=== PATIENT | male | born 1935 | race Caucasian/White ===

== ENCOUNTER → 2016-04-29 | Outpatient (CLI) | payer MEDICARE, OTHER ==
[~2016-04-29] MED LIST: ASP81TEC PO; IBUP-15 PO; MULT1CAP27 PO; SULF1TAB38 PO
--- NOTE | 2016-05-02 00:33 | ECHOCARDIOGRAPHY REPORT ---
PROCEDURE PHYSICIAN: KAITY CHEATHAM DATE OF PROCEDURE: 04/29/2016 TWO DIMENSIONAL ECHOCARDIOGRAM REPORT PRIMARY PHYSICIAN: Dr. Alston OTHER PHYSICIAN: Dr. Cheatham REFERRING PHYSICIAN: ORDERING PHYSICIAN: Kathryn Humphreys APRN INDICATION FOR THE PROCEDURE: 1. Aortic stenosis. 2. Coronary artery disease. 3. Shortness of breath. MEASUREMENTS DERIVED VALUES LV DIAMETER (LAX) NORMALS NORMALS Diastolic 4.9 (3.6-5.2) Eject. Fract. (60%+/-6%) Systolic (2.3-3.9) Diastolic Vol. % Shortening (0.22-0.42) Systolic Vol. Aortic Root 4 IVS THICKNESS Diastolic 1.5 (0.6-1.1) LVPW THICKNESS Diastolic 1.4 (0.6-1.1) LA DIAMETER Systolic 5 (2.1-3.7) DESCRIPTION: Two-dimensional echocardiography shows mild to moderate concentric left ventricular hypertrophy. Global left ventricular systolic function appears well preserved. Left ventricular ejection fraction is approximately 55%. There is moderate mitral annular calcification and moderate aortic valve sclerosis. Mitral and tricuspid valve leaflets show good leaflet excursion. Aortic valve leaflets exhibit diminished but fair leaflet excursion exertion. Doppler imaging shows mild mitral, tricuspid, pulmonic and aortic regurgitation. Pulmonary artery systolic pressure is estimated to be approximately 30 mmHg. Mitral inflow is consistent with grade 1 diastolic dysfunction of the left ventricle. Peak pressure gradient across the aortic valve is approximately 30 mmHg with a mean gradient of 20 mmHg and aortic valve area is calculated to be approximately 1.9 sq cm. There is no evidence of significant intracardiac shunt on this transthoracic echocardiographic study. CONCLUSION: 1. Significant aortic valve sclerosis with mild to moderate aortic stenosis and a mean gradient across the aortic valve of approximately 20 mmHg with a calculated area approximately 1.9 cm sq. 2. Well preserved global left ventricular systolic function with an ejection fraction of approximately 55%. 3. Mild to moderate concentric left ventricular hypertrophy. 4. Mild diastolic dysfunction of the left ventricle. 5. Mild aortic, mitral, tricuspid and pulmonic regurgitation. 6. Pulmonary artery systolic pressure is estimated to be approximately 30 mmHg. Job ID: [id number] Dictated Date: 05/01/2016 16:19:40 Water Quality Analyst Date: 05/02/2016 00:28:32 / joslyn
== END ==
LOC: CARD 14:30
PROVIDERS: ATTEND Nurse Practitioner Family
DX: I35.0 Nonrheumatic aortic (valve) stenosis (principal); I25.10 Atherosclerotic heart disease of native coronary artery without angina pectoris; R06.09 Other forms of dyspnea; I65.23 Occlusion and stenosis of bilateral carotid arteries; E78.4 Other hyperlipidemia; Z95.1 Presence of aortocoronary bypass graft
CPT/HCPCS: 93306

== ENCOUNTER → 2016-05-10 | Outpatient (CLI) | payer MEDICARE, OTHER ==
[~2016-05-10] VITALS: Ht 182.9 cm; Wt 100.7 kg
[~2016-05-10] MED LIST changes: +CATHETER FLUSH 10 ML SYR IV PRN; +REGADENOSON 0.4 MG/5 ML SYR (LEXISCAN) IV ONE
[2016-05-10 09:55] VITALS: BP 132/67
[2016-05-10 10:03] VITALS: BP 120/58
[2016-05-10 10:06] VITALS: BP 126/62
--- NOTE | 2016-05-11 08:48 | STRESS TEST ---
PROCEDURE PHYSICIAN: KAITY CHEATHAM DATE OF PROCEDURE: 05/10/2016 RESTING AND POST REGADENOSON TECHNETIUM 99M TETROFOSMIN SPECT CT IMAGING: ORDERING PHYSICIAN: Kathryn Humphreys APRN. PRIMARY PHYSICIAN: Dr. Alston OTHER PHYSICIAN: Dr. Cheatham. INDICATION FOR THE PROCEDURE: 1. Aortic stenosis. 2. Coronary artery disease. 3. Shortness of breath. Baseline images were carried out after injection of 10.71 mCi of technetium 99m tetrofosmin. This was followed by 0.4 mg of regadenoson and 32 mCi of technetium 99m tetrofosmin for stress imaging. The electrocardiogram showed sinus rhythm with right bundle branch block and left anterior fascicular block. The electrocardiogram did not change significantly with regadenoson infusion. The patient did not report significant symptoms. Review of images at rest and following regadenoson infusion indicates a small, fixed inferoseptal perfusion defect. Gated images show a localized area of inferoseptal hypokinesis to akinesis. Left ventricular ejection fraction is calculated to be 52%. Left ventricular end-diastolic volume 140 mL. TID is absent (1.09). CONCLUSIONS: 1. This study is suggestive of a small inferoseptal myocardial infarction without any significant ischemia. 2. Localized inferoseptal hypokinesis. 3. Well preserved global left ventricular systolic function with a calculated ejection fraction of 52%. 4. Mild to moderate cardiomegaly. Job ID: [id number] Dictated Date: 05/11/2016 08:06:05 Addiction Social Worker Date: 05/11/2016 08:42:54 / joslyn
== END ==
LOC: CARD 08:14
PROVIDERS: ATTEND Nurse Practitioner Family
DX: I35.0 Nonrheumatic aortic (valve) stenosis (principal); I25.10 Atherosclerotic heart disease of native coronary artery without angina pectoris; R06.09 Other forms of dyspnea; I65.23 Occlusion and stenosis of bilateral carotid arteries; E78.4 Other hyperlipidemia; Z95.1 Presence of aortocoronary bypass graft
CPT/HCPCS: 78452; 93017

== ENCOUNTER → 2016-12-13 | Outpatient (CLI) | payer MEDICARE, OTHER ==
[~2016-12-13] MED LIST changes: -CATHETER FLUSH 10 ML SYR IV PRN; -REGADENOSON 0.4 MG/5 ML SYR (LEXISCAN) IV ONE
--- NOTE | 2016-12-13 16:20 | Diagnostic Imaging Report ---
EXAMINATION: Right lower extremity duplex venous ultrasound. TECHNIQUE: DVT protocol. Multiple sonographic images with color Doppler and waveform interrogation were performed of the right lower extremity veins with compression and augmentation maneuvers. INDICATION: Right leg pain. FINDINGS: The right lower extremity veins from the groin to below the knee veins were examined with normal color-flow, compressibility and normal waveform demonstrated. The tibial veins are not well seen due to lack edema. IMPRESSION: No evidence of DVT in the right lower extremity in the femoropopliteal segments. Dictated by: Dictated on workstation # [id number]
== END ==
LOC: RAD 14:56
PROVIDERS: ATTEND Nurse Practitioner Family
DX: M79.89 Other specified soft tissue disorders (principal); I25.10 Atherosclerotic heart disease of native coronary artery without angina pectoris; I35.0 Nonrheumatic aortic (valve) stenosis; I65.23 Occlusion and stenosis of bilateral carotid arteries; E78.4 Other hyperlipidemia
CPT/HCPCS: 93923

== ENCOUNTER 2017-10-18 05:33 | Outpatient (CLI) | payer MEDICARE, OTHER ==
[~2017-10-18] VITALS: Ht 182.9 cm; Wt 100.7 kg
[2017-10-18] MEDS ORDERED: ASPI-999 PO (10:54)
[2017-10-18] MEDS ORDERED: PRAV40TA PO (10:54)
[2017-10-18] MEDS ORDERED: LOSA50TA36 PO (10:54)
[2017-10-18] MEDS ORDERED: IBUP-2185 PO (10:54)
[2017-10-18] MEDS ORDERED: MULT1CAP27 PO (10:54)
== END 2017-10-18 11:02 ==
LOC: PREOP 05:33
PROVIDERS: ATTEND Surgery
DX: Z01.818 Encounter for other preprocedural examination (principal); L72.9 Follicular cyst of the skin and subcutaneous tissue, unspecified

== ENCOUNTER 2017-10-19 07:48 | Day surgery (SDC) | payer MEDICARE, OTHER ==
[~2017-10-19] VITALS: Ht 182.9 cm; Wt 100.7 kg
[~2017-10-19 07:48] MED LIST changes: +ASPI-999 PO; +IBUP-2185 PO; +LOSA50TA36 PO; +PRAV40TA PO
[2017-10-19 08:10] VITALS: BP 145/91
[2017-10-19] MEDS ORDERED: LACTATED RINGERS 1,000 ML IV PRN (08:15)
[2017-10-19] MEDS ORDERED: ceFAZolin 1 GM/NS 50 ML IVPB IV ONE ×2 (08:15)
[2017-10-19] MEDS ORDERED: LIDOCAINE 1% INJ 20 ML 20 ML VIAL ONE (09:31)
[2017-10-19] MEDS ORDERED: BUP/EPI 0.5% 1:200,000 (SENSORCAINE) 30 ML VIAL ONE (09:31)
--- NOTE | 2017-10-19 09:50 | Progress Note-Pre Operative ---
Pre-Operative Progress Note H&P Reviewed The H&P was reviewed, patient examined and no changes noted. Date Seen by Provider: Oct 19, 2017 Time Seen by Provider: 09:48 Date H&P Reviewed: Oct 19, 2017 Time H&P Reviewed: 09:48 Pre-Operative Diagnosis: cyst of back ZAID MENDEZ DO Oct 19, 2017 09:50
[2017-10-19 10:37] VITALS: BP 142/79
--- NOTE | 2017-10-19 10:51 | Progress Note-Post Operative ---
Post-Operative Progess Note Surgeon (s)/Tube Roller (s) Surgeon ZAID MENDEZ DO Tube Roller: na Pre-Operative Diagnosis cyst of back Post-Operative Diagnosis same Procedure & Operative Findings Date of Procedure 10/19/17 Procedure Performed/Findings excision cyst back 4.2 x 1.8 cm layered closure Anesthesia Type local Estimated Blood Loss Estimated blood loss (mL): min Specimens/Packing Specimens Removed skin, cyst, and subcutaneous tissue ZAID MENDEZ DO Oct 19, 2017 10:51
--- NOTE | 2017-10-19 10:52 | Discharge Inst-Simple/Standard ---
Discharge Inst-Standard Patient Instructions/Follow Up Plan of Care/Instructions/FU: 2 week Anali Activity as Tolerated: Yes Discharge Diet: Regular Diet Other Inst to Patient Follow up Appt: Make appointment for 2 week. Instructions: No strenuous activity. May shower in 24 hours, no tub bath or soaking. Use incentive spirometer at home as directed. No Smoking Skin/Wound Care: May remove bandages in 24 hours. Keep clean and dry Symptoms to Report: Appetite Changes, Extremity Discoloration, Numbness/Tingling, Swelling Increased , Bleeding Excessive, Eyesight Changes, Pain Increased, Urine Color Change, Constipation(Persistent), Fever over 101 degree F, Pain/Pressure in chest, Urinating Difficulty, Cough Up/Vomit Blood, Heart Beat Irreg/Pounding, Pain/ Pressure in jaw, Vaginal Bleeding Increase, Cramps in feet or legs, Lightheadedness, Pain/Pressure in shoulder, Diarrhea(Persistent), Memory Changes Suddenly, Questions/Concerns, Weight gain consecutive days, Dizziness/ Fainting, Nausea/Vomiting, Shortness of Breath, Weight gain over 2 pounds If questions or concerns contact your physician Or seek help at emergency department. ZAID MENDEZ DO Oct 19, 2017 10:52
[2017-10-19 11:10] VITALS: BP 141/67
--- NOTE | 2017-10-19 12:44 | OPERATIVE REPORT ---
DATE OF SERVICE: 10/19/2017 PREOPERATIVE DIAGNOSIS: Cyst of back. POSTOPERATIVE DIAGNOSIS: Cyst of back. PROCEDURE: Excision of cyst of back 4.2 x 1.8 cm with layered closure. ANESTHESIA: Local. ESTIMATED BLOOD LOSS: Minimal. COMPLICATIONS: None. INDICATIONS: The patient is an 82-year-old male with a cyst on his back that has been recurrent. It was recently inflamed and was causing discomfort. He understands risks and benefits of procedure and wished to proceed with procedure. Consent was signed on the chart. DESCRIPTION OF PROCEDURE: The patient was taken to the operating suite, was prepped and draped in sterile fashion. Surgical pause was performed. Local anesthetic with epinephrine was used to anesthetize the area. An elliptical incision taking the skin and subcutaneous tissue and the cyst was made using cautery measuring 4.2 x 1.8 cm. The wound was then irrigated with copious amounts of irrigation and suction. The deep tissues were reapproximated using 3-0 Vicryl along with the subcutaneous tissues. The skin was then closed using 3-0 Prolene in a simple running fashion. The area was then washed and dried and sterile bandage was applied. The patient tolerated the procedure well without any complications and was taken to recovery in stable condition. Job ID: [id number] DocumentID: [id number] Dictated Date: 10/19/2017 10:56:11 Gin Feeder Date: 10/19/2017 12:44:05 Dictated By: ZAID MENDEZ DO
== END 2017-10-19 11:10 | disposition home or self-care (01) ==
LOC: SDC 07:48
PROVIDERS: ATTEND Surgery
DX: L72.9 Follicular cyst of the skin and subcutaneous tissue, unspecified (principal); I25.10 Atherosclerotic heart disease of native coronary artery without angina pectoris; I10 Essential (primary) hypertension; I45.3 Trifascicular block; I08.0 Rheumatic disorders of both mitral and aortic valves; Z79.82 Long term (current) use of aspirin; Z95.1 Presence of aortocoronary bypass graft
CPT/HCPCS: 87081